=== PATIENT | male | born 1935 | race Caucasian/White ===

== ENCOUNTER → 2016-03-26 | Outpatient (CLI) | payer OTHER | LOC: PCVCCLINIC 09:10 | PROVIDERS: ATTEND Internal Medicine | DX: I25.10 Atherosclerotic heart disease of native coronary artery without angina pectoris (principal); I48.91 Unspecified atrial fibrillation | CPT/HCPCS: 36415 ==

== ENCOUNTER → 2016-05-17 | Outpatient (CLI) | payer OTHER | END | disposition home or self-care (01) | LOC: PCVCIMAG 05-13 14:44 | PROVIDERS: ATTEND Internal Medicine | DX: I25.10 Atherosclerotic heart disease of native coronary artery without angina pectoris (principal); I25.5 Ischemic cardiomyopathy; I48.91 Unspecified atrial fibrillation | CPT/HCPCS: 93306; G0463 ==

== ENCOUNTER → 2017-06-17 | Outpatient (CLI) | payer OTHER | END | disposition home or self-care (01) | LOC: PCVCCLINIC 15:27 | DX: I50.20 Unspecified systolic (congestive) heart failure (principal); I25.5 Ischemic cardiomyopathy; I48.0 Paroxysmal atrial fibrillation; K56.601 Complete intestinal obstruction, unspecified as to cause; Z79.899 Other long term (current) drug therapy; Z79.82 Long term (current) use of aspirin; Z87.891 Personal history of nicotine dependence | CPT/HCPCS: 36415; G0463 ==

== ENCOUNTER → 2017-09-11 | Outpatient (CLI) | payer OTHER | END | disposition home or self-care (01) | LOC: PCVCIMAG 12:45 | DX: I48.91 Unspecified atrial fibrillation (principal); I25.5 Ischemic cardiomyopathy; E78.5 Hyperlipidemia, unspecified; Z88.2 Allergy status to sulfonamides | CPT/HCPCS: 80061; 93308 ==

== ENCOUNTER → 2018-02-18 | Outpatient (CLI) | payer OTHER | END | disposition home or self-care (01) | LOC: PCVCCLINIC 11:10 | PROVIDERS: ATTEND Internal Medicine | DX: I48.0 Paroxysmal atrial fibrillation (principal); I50.9 Heart failure, unspecified; E78.5 Hyperlipidemia, unspecified; Z88.2 Allergy status to sulfonamides | CPT/HCPCS: 80061 ==